=== PATIENT | female | born 1995 | race Two or more races ===

== ENCOUNTER 2016-07-19 09:58 | Emergency (ER) | payer MEDICAID ==
[~2016-07-19] VITALS: Ht 162.6 cm; Wt 56.2 kg
[2016-07-19 10:32] LABS: Basophils # (auto) 0 uL; Basophils % (auto) 0.3 % (0.0-2.0); Eosinophils # (auto) 0 uL; Eosinophils % (auto) 0.3 % (0.0-7.0); Hematocrit 44.5 % (36.0-46.0); Hemoglobin 14.7 g/dL (12.2-16.2); Lymphocytes # (auto) 1.9 uL; Lymphocytes % (auto) 19.1 % (10.0-50.0); Mean Corpuscular Hemoglobin 27.9 pg (28.0-32.0); Mean Corpuscular Hgb Conc. 32.9 g/dL (32.0-36.0); Mean Corpuscular Volume 84.5 fL (80.0-100.0); Mean Platelet Volume 7.6 fL (7.4-10.4); Monocytes # (auto) 1.1 uL; Monocytes % (auto) 10.9 % (0.0-12.0); Neutrophils # (auto) 6.7 uL; Neutrophils % (auto) 69.4 % (37.0-80.0); Platelet Count (auto) 265 10^3/uL (140-450); Red Cell Distribution Width 13.3 % (11.6-16.0); White Blood Cell 9.7 10^3/uL (4.4-10.8)
[2016-07-19 10:45] LABS: Urine Bilirubin Negative (Negative); Urine Blood Negative /uL (Negative); Urine Color Yellow (Yellow); Urine Glucose Normal (Normal); Urine Ketone Negative (Negative); Urine Nitrite Negative (Negative); Urine RBC <1 /hpf (0 - 4); Urine Squamous Epithelial Cell FEW /hpf (<5); Urine Urobilinogen Normal (Negative)
[2016-07-19 10:49] LABS: Albumin 4.1 g/dL (3.4-5.0); Anion Gap 12 (5-15); Aspartate Aminotransferase 15 U/L (15-37); BUN/Creatinine Ratio 12.8; Blood Urea Nitrogen 10 mg/dL (7-18); Calcium 8.7 mg/dL (8.5-10.1); Carbon Dioxide 24 mmol/L (21-32); Chloride 104 mmol/L (98-107); GFR African American 122 mL/min; GFR Non-African American 101 mL/min; Glucose 90 mg/dL (74-106); HEMOLYSIS - HIL 1; ICTERIA - HIL 1; LIPEMIA - HIL 1; Potassium 3.9 mmol/L (3.5-5.1); Sodium 140 mmol/L (136-145)
[2016-07-19 10:54] LABS: Alkaline Phosphatase 77 U/L (45-117); Bilirubin, Total 0.3 mg/dL (0.2-1.0); Total Protein 8.4 g/dL (6.4-8.2)
[2016-07-19 11:30] VITALS: BP 112/85
== END 2016-07-19 12:16 | disposition home or self-care (01) ==
LOC: ER 09:58
DX: J40 Bronchitis, not specified as acute or chronic (principal); Z98.890 Other specified postprocedural states; Z87.891 Personal history of nicotine dependence
CPT/HCPCS: 36415; 71020; 80053; 81001; 81025; 84484; 85025; 93005

== ENCOUNTER 2020-09-13 14:37 | Emergency (ER) | payer SELFPAY ==
[~2020-09-13] VITALS: Ht 162.6 cm; Wt 61.7 kg
[2020-09-13 15:46] VITALS: BP 148/98
[2020-09-13] MEDS ORDERED: methylPREDNISolone SOD SUCC 125 MG/2 ML VL IM ONE (16:30)
[2020-09-13] MEDS ORDERED: IPRATROPIUM BROM 0.5 MG/2.5ML INH SOL NEB ONE (16:30)
[2020-09-13] MEDS ORDERED: ALBUTEROL SULF 2.5 MG/0.5ML(0.5%) NEB SOLN NEB ONE (16:30)
== END 2020-09-13 17:28 | disposition home or self-care (01) ==
LOC: ER 14:39
DX: J20.9 Acute bronchitis, unspecified (principal); J45.901 Unspecified asthma with (acute) exacerbation; F17.210 Nicotine dependence, cigarettes, uncomplicated
CPT/HCPCS: 71046; 94640; 96372; 99283; J2930; J7644

== ENCOUNTER 2024-04-04 07:28 | Emergency (ER) | payer SELFPAY ==
[~2024-04-04] VITALS: Ht 165.1 cm; Wt 84.1 kg
--- NOTE | 2024-04-04 07:54 | ED.PDOC ---
History of Present Illness HPI Comments 28-year-old female previously healthy presents with 2 days of congestion, odynophagia and general malaise. She denies any sick contacts. She took some Tylenol and ibuprofen with some relief. She had since her throat is hurting worse she decided to come in. 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 History Family History Family History: No family hx of Cancer, No family hx of DM, No family hx of HTN Social History Smoker: Quit Less Than 1 Year, Cigarettes Alcohol: Rarely Drugs: Denies Drug Use Lives In: Home All Other Systems: Reviewed and Negative Physical Exam General Appearance: No Apparent Distress, Normal HEENT: Normal ENT Inspection, Pharynx Normal, TMs Normal Neck: Full Range of Motion, Non-Tender, Normal, Normal Inspection Respiratory: Chest Non-Tender, Lungs Clear, No Accessory Muscle Use, No Respiratory Distress, Normal Breath Sounds Cardiovascular: No Edema, No JVD, No Murmur, No Gallop, Normal Peripheral Pulses, Regular Rate/Rhythm Breast Exam: Deferred Gastrointestinal: No Organomegaly, Non Tender, No Pulsatile Mass, Normal Bowel Sounds, Soft Genitalia: Deferred Pelvic: Deferred Rectal: Deferred Extremities: No calf tenderness, Normal capillary refill, Normal inspection, Normal range of motion, Non-tender, No pedal edema Musculoskeletal : Apperance: Normal Neurologic: Alert, trade sales assistant II-XII nml as Tested, No Motor Deficits, Normal Affect, Normal Mood, No Sensory Deficits Cerebellar Function: Normal Reflexes: Normal Skin: Dry, Normal Color, Warm Lymphatic: No Adenopathy Was a procedure done? Was a procedure done?: No Differential Dx Considerations may include: Viral syndrome, strep pharyngitis, Time of 1ST Reevaluation: 07:52 Reevaluation 1ST: Improved Patient Education/Counseling: Diagnosis, Treatment Family Education/Counseling: No Family Present Departure 1 Departure Time of Disposition: 07:52 (Likely viral pharyngitis (patient) Impression: Primary Impression: Viral pharyngitis Disposition: HOME / SELF CARE / HOMELESS Condition: Stable Additional Instructions: You likely have a viral illness. It is important to stay well rested and well hydrated. You can take Tylenol and Motrin as needed for pain and fever. For a sore throat you can drink warm tea with honey. You can take [id number] pseudoephedrine for nasal congestion. He should follow up with your regular doctor within 1 week to ensure you are doing better. If your symptoms worsen or you have any other concerns please return to the emergency room. Discharged With: Self Critical Care Note Critical Care Time?: No Stability Stability form required: CELESTINA Rubi MD Apr 04, 2024 07:53
[2024-04-04 07:58] VITALS: BP 140/78; PULSE 98; RESP 18; O2SAT 99
[2024-04-04 08:02] VITALS: TEMP 99.3
[2024-04-04] MEDS: ACETAMINOPHEN 325 MG TAB PO ONE (08:02)
[2024-04-04] MEDS: DexAMETHasone SOD PHOS 10MG/1ML VIAL INJ PO ONE (08:02)
== END 2024-04-04 08:12 | disposition home or self-care (01) ==
LOC: ER 07:28
DX: J02.8 Acute pharyngitis due to other specified organisms (principal); J45.909 Unspecified asthma, uncomplicated
CPT/HCPCS: 99283; J1100